=== PATIENT | male | born 1985 | race Hispanic/Latino ===

== ENCOUNTER 2019-05-30 11:03 | Day surgery (SDC) | payer SELFPAY ==
--- NOTE | 2019-05-30 13:08 | RAD ---
RIGHT KNEE 4 VIEWS: Date: 05/30/19 HISTORY: Nail gun injury to knee. FINDINGS: A nail has entered the anterior lateral femoral condyle just superior to the patella. There is no ruthie dence of joint effusion on this exam. No acute fracture or other osseous abnormality. IMPRESSION: Nail is impaled within the lateral femoral condyle of distal femur. POS: [facility]
[2019-05-30] MEDS ORDERED: Ampicillin 2 GM VIAL ONE (13:19)
[2019-05-30] MEDS ORDERED: Neomycin-Polymyxin 1 ML AMP ONE (14:02)
[2019-05-30] MEDS ORDERED: HYDROmorphone 2 MG/ML VIAL ONE (14:22)
[2019-05-30] MEDS ORDERED: Midazolam HCl 2 mg/2 ml Vial ONE (14:22)
[2019-05-30] MEDS ORDERED: Fentanyl 100 MCG/2 ML VIAL ONE (14:22)
--- NOTE | 2019-05-30 15:45 | RAD ---
RIGHT KNEE: Single AP fluoroscopic images taken in OR. INDICATION: Fluoroscopic imaging in OR during foreign body removal. FINDINGS/IMPRESSION: Single AP view of the knee is presented. Radiopaque instrument overlies the femur and proximal tibia. The radiopaque nail which was noted on earlier plain films is not seen on this single view. POS: [facility]
--- NOTE | 2019-05-31 11:36 | OP ---
DATE OF PROCEDURE: 05/30/2019 PREOPERATIVE DIAGNOSIS: Intraarticular foreign body, right knee (Finish nail). POSTOPERATIVE DIAGNOSIS: Intraarticular foreign body, right knee (Finish nail). PROCEDURES PERFORMED: 1. Right knee anterolateral arthrotomy with removal of foreign body. 2. Irrigation and debridement of the right knee. ANESTHESIA: General. NEWS WIRE PHOTO OPERATOR: Hermelinda Leung PA-C. TOURNIQUET TIME: 24 minutes at 300 mmHg. ESTIMATED BLOOD LOSS: 10 mL. COMPLICATIONS: None. DRAINS: None. SPECIMEN: Explanted nail discarded. OUTCOME: Successful removal of nail. INDICATIONS FOR PROCEDURE: The patient is a 33-year-old gentleman, who sustained an accidental injection of a nail from a nail gun through the anterior knee into the lateral femoral condyle of the distal femur. After discussion with the patient including risks and benefits, we decided to proceed with surgical removal of nail and irrigation of this traumatic arthrotomy. Informed consent has been obtained and all questions answered. DESCRIPTION OF PROCEDURE: The patient was brought to the operating room and a time-out performed followed by induction of general anesthesia. The limb was then exsanguinated with Esmarch bandage, tourniquet inflated to 300 mmHg. An anterolateral incision was then made just to the lateral aspect of the quadriceps tendon. After skin was sharply incised, dissection was carried down to the underlying quadriceps mechanism. This was incised in line with the skin incision, entering the knee joint. At this point, the top of the nail could be identified visually. Using a pair of pliers, the nail was able to be removed in its entirety. This was confirmed with a single AP C-arm image of the knee following nail removal. Next, the knee was irrigated with 3 L of normal saline with antibiotic irrigant added. Once the irrigation was completed, no necrotic tissue was encountered and wound closure performed with 0 Vicryl for the arthrotomy into the joint and closure of the extensor expansion laterally, 2-0 Vicryl subcutaneously and sabrina for the skin. Xeroform gauze and Nicolas wrap dressing were applied to the knee and then the patient was transferred to recovery room in stable condition. Tourniquet was let down at the completion of dressing. There were no complications. He tolerated the procedure well. Job ID: [id number]
== END 2019-05-30 17:33 | disposition home or self-care (01) ==
LOC: ERS 11:03 → SDC 16:06
PROVIDERS: ATTEND Orthopaedic Surgery
PROC: 0SCC0ZZ Extirpation of Matter from Right Knee Joint, Open Approach (ICD-10-PCS; principal; 2019-05-30)
DX: S81.041A Puncture wound with foreign body, right knee, initial encounter (principal); F17.210 Nicotine dependence, cigarettes, uncomplicated; W45.0XXA Nail entering through skin, initial encounter; W29.4XXA Contact with nail gun, initial encounter; Y99.0 Civilian activity done for income or pay
CPT/HCPCS: 76000; 96365; J0290; J1170; J2250; J3010